=== PATIENT | male | born 1975 | race American Indian/Alaskan Native ===

== ENCOUNTER 2017-01-25 10:51 | Emergency (ER) | payer OTHER ==
[2017-01-25 11:04] VITALS: BP 119/79
[2017-01-25] MEDS ORDERED: BOOSTRIX IM ONE (11:21)
[2017-01-25] MEDS ORDERED: TRIPLE ANTIBIOTIC TP ONE (11:21)
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
== END 2017-01-25 12:20 | disposition home or self-care (01) ==
LOC: ED 10:51
DX: S50.811A Abrasion of right forearm, initial encounter (principal); W50.4XXA Accidental scratch by another person, initial encounter; Y93.89 Activity, other specified; Y99.8 Other external cause status; Y92.89 Other specified places as the place of occurrence of the external cause
CPT/HCPCS: 90471; 90715; A6250

== ENCOUNTER 2017-05-04 14:06 | Emergency (ER) | payer SELFPAY ==
[2017-05-04 14:21] VITALS: BP 123/82
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
[2017-05-04] MEDS ORDERED: MOTRIN PO ONE (15:13)
[2017-05-04] MEDS ORDERED: TRIPLE ANTIBIOTIC TP ONE (15:13)
[2017-05-04] MEDS ORDERED: KEFLEX PO ONE (15:13)
--- NOTE | 2017-05-04 15:19 | XRay Report ---
RIGHT SHOULDER RADIOGRAPHS INDICATION: Fall. COMPARISON: None similar at this institution. FINDINGS: Frontal and Y views of the right shoulder, 3 projections demonstrate normal humeral head contour, well positioned against the glenoid. Normal acromioclavicular joint. Preserved scapular contour. Normal visualized soft tissues, right ribs and lung. CONCLUSION: No acute right shoulder radiographic abnormality, as described. Thank you for the opportunity to participate in this patient's care.
== END 2017-05-04 16:07 | disposition home or self-care (01) ==
LOC: ED 14:06
DX: S50.811A Abrasion of right forearm, initial encounter (principal); S80.212A Abrasion, left knee, initial encounter; M25.511 Pain in right shoulder; W19.XXXA Unspecified fall, initial encounter; Y93.9 Activity, unspecified; Y99.9 Unspecified external cause status; Y92.89 Other specified places as the place of occurrence of the external cause
CPT/HCPCS: 99284; A6250

== ENCOUNTER 2019-08-26 12:21 | Emergency (ER) | payer OTHER ==
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
[2019-08-26 15:29] VITALS: BP 154/102
== END 2019-08-26 15:45 | disposition home or self-care (01) ==
LOC: ED 12:21 → EEVIPCON 12:21 → ED 15:45
DX: S40.811A Abrasion of right upper arm, initial encounter (principal); I10 Essential (primary) hypertension; W50.3XXA Accidental bite by another person, initial encounter; Y93.89 Activity, other specified; Y92.89 Other specified places as the place of occurrence of the external cause; Y99.8 Other external cause status
CPT/HCPCS: 99282